=== PATIENT | female | born 1960 | race African-American/Black ===

== ENCOUNTER 2018-08-12 15:02 | Inpatient (IN) | payer MEDICAID ==
[~2018-08-12] VITALS: Ht 167.6 cm; Wt 89.4 kg
[~2018-08-12 15:02] MED LIST: AMLO5TAB88 PO; ARIP15TA2 PO; CARB200T PO; CARB200T6 PO; CLOP75TA16 PO; HYDR-3927 PO; HYDR25TA PO; KEPP500 PO; LEVO500T2 PO; LEVVL SQ; LISI10TA5 PO; METF-416 PO; MIRT30TA PO; OMEP20CA4 PO; PANT40TA4 PO; PRAV40TA PO; SIME80TA15 PO; SIMV10TA2 PO; SIMV10TA6 PO; SITA100T11 PO; [UNRECOGNIZED DRUG - CODE] PO
[2018-08-12] MEDS ORDERED: HYDRALAZINE 20MG/ML VIAL IV ONE (15:15)
[2018-08-12 16:39] LABS: CLARITY URINE CLEAR (CLEAR); COLOR URINE YELLOW (YELLOW); KETONES URINE NEGATIVE (NEGATIVE); LEUKOCYTE ESTERASE URINE TRACE (NEGATIVE); NITRITE URINE NEGATIVE (NEGATIVE); OCCULT BLOOD URINE NEGATIVE (NEGATIVE); PH URINE 6.5 (4.5-8.0); PROTEIN URINE 1+ (NEGATIVE); SPECIFIC GRAVITY URINE 1.016 (1.005-1.030); UROBILINOGEN URINE 0.2 E.U./dL (0.2-1.0)
[2018-08-12 16:39] LABS: EOSINOPHILS % 0.5 % (0.0-5.0); HEMATOCRIT. 31.6 % (36.0-48.0); HEMOGLOBIN. 9.8 g/dL (12.0-16.0); LYMPHOCYTES % 25.6 % (20.0-50.0); MEAN CORPUSCULAR HEMOGLOBIN 25.6 pg (28.0-32.0); MEAN CORPUSCULAR VOLUME 82.5 fL (81.0-99.0); MEAN PLATELET VOLUME 8.6 fl (7.4-10.4); MONOCYTES % 7.8 % (2.0-8.0); NEUTROPHILS % 65.1 % (40.0-76.0); PLATELET 261 x1000/uL (130-400); RED BLOOD CELL COUNT 3.83 mill/uL (4.2-5.4); RED CELL DISTRIBUTION WIDTH 16.3 % (11.6-14.6)
[2018-08-12 16:46] LABS: CHLORIDE 101 mEq/L (98-107)
[2018-08-12 16:47] LABS: INR 1.1; PROTHROMBIN TIME 10.7 sec (9.1-11.1)
[2018-08-12 16:52] LABS: ETHANOL BLOOD < 10 mg/dL
[2018-08-12 16:54] LABS: LDL CHOLESTEROL 134 mg/dL (5-100)
[2018-08-12 16:56] LABS: *BARBITURATES SCREEN URINE NEGATIVE (NEGATIVE); *BENZODIAZEPINES SCREEN URINE NEGATIVE (NEGATIVE); *COCAINE SCREEN URINE NEGATIVE (NEGATIVE); METHADONE URINE SCREEN NEGATIVE (NEGATIVE); OPIATES URINE SCREEN NEGATIVE (NEGATIVE)
[2018-08-12 16:57] LABS: *AMPHETAMINES SCREEN URINE NEGATIVE (NEGATIVE); CANNABINOID URINE SCREEN PRESUMTIVE POSITIVE (NEGATIVE); PHENCYCLIDINE URINE SCREEN NEGATIVE (NEGATIVE)
[2018-08-12] MEDS ORDERED: SODIUM CHLORIDE 0.9% 500 ML IV NR (18:00)
[2018-08-12] MEDS ORDERED: INSULIN LISPRO 100 UNITS/ML SUBCUT NR (18:00)
[2018-08-12] MEDS ORDERED: ONDANSETRON HCL 4MG/2ML INJ IV PRN (19:00)
[2018-08-12] MEDS ORDERED: ACETAMINOPHEN 650MG SUPP PR PRN (19:00)
[2018-08-12] MEDS ORDERED: IPRATROPIUM/ALBUTEROL 0.5-3(2.5)MG/3ML NEB INH PRN (19:00)
[2018-08-12 19:54] LABS: PHOSPHORUS 4.2 mg/dL (2.5-4.9)
[2018-08-12 23:25] LABS: CREATINE KINASE 93 IU/L (26-192)
[2018-08-12] MEDS ORDERED: ASPIRIN 81MG TABLET PO NR (23:30)
[2018-08-13] VITALS (13 sets, daily range): BP systolic 123–157; BP diastolic 56–93
[2018-08-13] MEDS ORDERED: DEXTROSE 50% WATER 50ML SYRINGE IV PRN (00:15)
[2018-08-13 06:49] LABS: CHLORIDE 106 mEq/L (98-107)
[2018-08-13] MEDS: HYDRALAZINE 20MG/ML VIAL IV PRN ×2 (06:56→15:01)
[2018-08-13 07:11] LABS: LDL CHOLESTEROL 130 mg/dL (5-100)
[2018-08-13 07:12] LABS: CREATINE KINASE 81 IU/L (26-192); HDL CHOLESTEROL 98 mg/dL (40-59)
[2018-08-13 07:25] LABS: BASOPHILS % 1.3 % (0.0-2.0); EOSINOPHILS % 0.6 % (0.0-5.0); HEMOGLOBIN. 9.8 g/dL (12.0-16.0); LYMPHOCYTES % 26.5 % (20.0-50.0); MEAN CORPUSCULAR HEMOGLOBIN 25.6 pg (28.0-32.0); MEAN CORPUSCULAR VOLUME 81.1 fL (81.0-99.0); MEAN PLATELET VOLUME 8.7 fl (7.4-10.4); MONOCYTES % 8.4 % (2.0-8.0); NEUTROPHILS % 63.2 % (40.0-76.0); PLATELET 310 x1000/uL (130-400); RED BLOOD CELL COUNT 3.81 mill/uL (4.2-5.4); RED CELL DISTRIBUTION WIDTH 16.8 % (11.6-14.6)
[2018-08-13] MEDS: INSULIN LISPRO 100 UNITS/ML SUBCUT SCH ×4 (08:00→21:19)
[2018-08-13] MEDS: BLOOD SUGAR DIAGNOSTIC STRIP TEST SCH ×4 (08:02→21:00)
[2018-08-13 13:28] LABS: T4 FREE 0.86 ng/dL (0.76-1.46)
[2018-08-13] MEDS: SODIUM CHLORIDE 0.9% 1,000 ML IV SCH (13:34)
[2018-08-13] MEDS: AMLODIPINE 5MG TABLET PO SCH (13:38)
[2018-08-13] MEDS: CLOPIDOGREL 75MG TABLET PO SCH (13:38)
[2018-08-13] MEDS: LEVETIRACETAM 500MG TABLET PO SCH ×2 (13:38→21:00)
[2018-08-13 13:51] LABS: FOLIC ACID (FOLATE) SERUM >20 ng/mL ng/mL (>5.38)
[2018-08-13 14:12] LABS: VITAMIN B12 SERUM 725 pg/mL (211-911)
[2018-08-13] MEDS: MIRTAZAPINE 15MG TABLET PO SCH (21:00)
[2018-08-14] VITALS (13 sets, daily range): BP systolic 118–169; BP diastolic 63–85
[2018-08-14] MEDS: SODIUM CHLORIDE 0.9% 1,000 ML IV SCH ×2 (01:05→13:38)
[2018-08-14] MEDS: BLOOD SUGAR DIAGNOSTIC STRIP TEST SCH ×4 (07:36→20:42)
[2018-08-14] MEDS: LEVETIRACETAM 500MG TABLET PO SCH ×2 (08:16→20:42)
[2018-08-14] MEDS: AMLODIPINE 5MG TABLET PO SCH (08:16)
[2018-08-14] MEDS: CLOPIDOGREL 75MG TABLET PO SCH (08:16)
[2018-08-14] MEDS: INSULIN LISPRO 100 UNITS/ML SUBCUT SCH ×4 (08:39→20:52)
[2018-08-14] MEDS ORDERED: HYDR50SY PO (15:26)
[2018-08-14] MEDS ORDERED: OMEP20TA2 PO (15:26)
[2018-08-14] MEDS ORDERED: LURA60TA MT (15:26)
[2018-08-14] MEDS ORDERED: LORA10TA64 PO (15:26)
[2018-08-14] MEDS ORDERED: GEMF600T4 PO (15:26)
[2018-08-14] MEDS ORDERED: GABA-529 MT (15:26)
[2018-08-14] MEDS ORDERED: CLON0.3T PO (15:26)
[2018-08-14] MEDS: HYDRALAZINE 20MG/ML VIAL IV PRN (17:28)
[2018-08-14] MEDS: ATORVASTATIN CALCIUM 20MG TABLET PO SCH (20:42)
[2018-08-14] MEDS: MIRTAZAPINE 15MG TABLET PO SCH (20:42)
[2018-08-14] MEDS: INSULIN GLARGINE UD 100 UNITS/ML SYR SUBCUT SCH (21:01)
[2018-08-15] VITALS (13 sets, daily range): BP systolic 127–187; BP diastolic 70–104
[2018-08-15 06:48] LABS: BASOPHILS % 0.9 % (0.0-2.0); EOSINOPHILS % 0.9 % (0.0-5.0); HEMATOCRIT. 36.3 % (36.0-48.0); HEMOGLOBIN. 11.1 g/dL (12.0-16.0); LYMPHOCYTES % 38.4 % (20.0-50.0); MEAN CORPUSCULAR HEMOGLOBIN 25.1 pg (28.0-32.0); MEAN PLATELET VOLUME 8.6 fl (7.4-10.4); MONOCYTES % 6.9 % (2.0-8.0); NEUTROPHILS % 52.9 % (40.0-76.0); PLATELET 310 x1000/uL (130-400); RED BLOOD CELL COUNT 4.43 mill/uL (4.2-5.4); RED CELL DISTRIBUTION WIDTH 16.7 % (11.6-14.6)
[2018-08-15 06:49] LABS: CHLORIDE 108 mEq/L (98-107)
[2018-08-15] MEDS: BLOOD SUGAR DIAGNOSTIC STRIP TEST SCH ×4 (07:30→21:00)
[2018-08-15] MEDS: CLOPIDOGREL 75MG TABLET PO SCH (08:44)
[2018-08-15] MEDS: LEVETIRACETAM 500MG TABLET PO SCH ×2 (08:44→21:56)
[2018-08-15] MEDS: AMLODIPINE 5MG TABLET PO SCH (08:46)
[2018-08-15] MEDS: INSULIN LISPRO 100 UNITS/ML SUBCUT SCH ×4 (08:49→21:00)
[2018-08-15] MEDS: INSULIN GLARGINE UD 100 UNITS/ML SYR SUBCUT SCH ×2 (11:00→22:06)
[2018-08-15] MEDS: CLONIDINE 0.1MG TABLET PO PRN ×2 (11:56→18:14)
[2018-08-15] MEDS: ATORVASTATIN CALCIUM 20MG TABLET PO SCH (21:56)
[2018-08-15] MEDS: MIRTAZAPINE 15MG TABLET PO SCH (21:56)
[2018-08-15] MEDS ORDERED: INSULIN GLARGINE UD 100 UNITS/ML SYR SUBCUT SCH (22:00)
[2018-08-16] VITALS (9 sets, daily range): BP systolic 106–149; BP diastolic 60–78
[2018-08-16] MEDS: BLOOD SUGAR DIAGNOSTIC STRIP TEST SCH ×4 (07:30→21:59)
[2018-08-16] MEDS: LEVETIRACETAM 500MG TABLET PO SCH ×2 (08:17→21:58)
[2018-08-16] MEDS: AMLODIPINE 5MG TABLET PO SCH ×2 (08:17→21:58)
[2018-08-16] MEDS: CLOPIDOGREL 75MG TABLET PO SCH (08:17)
[2018-08-16] MEDS: INSULIN LISPRO 100 UNITS/ML SUBCUT SCH ×4 (08:18→21:59)
[2018-08-16] MEDS: INSULIN GLARGINE UD 100 UNITS/ML SYR SUBCUT SCH ×2 (10:05→22:00)
[2018-08-16 10:28] LABS: EOSINOPHILS % 1.1 % (0.0-5.0); HEMATOCRIT. 32.6 % (36.0-48.0); LYMPHOCYTES % 25.8 % (20.0-50.0); MEAN CORPUSCULAR VOLUME 81.9 fL (81.0-99.0); MEAN PLATELET VOLUME 8.6 fl (7.4-10.4); MONOCYTES % 6.4 % (2.0-8.0); NEUTROPHILS % 65.7 % (40.0-76.0); PLATELET 292 x1000/uL (130-400); RED BLOOD CELL COUNT 3.98 mill/uL (4.2-5.4); RED CELL DISTRIBUTION WIDTH 16.4 % (11.6-14.6)
[2018-08-16 10:36] LABS: CHLORIDE 106 mEq/L (98-107)
[2018-08-16 10:57] LABS: TOTAL IRON BINDING CAPACITY 342 ug/dL (250-450)
[2018-08-16] MEDS: SODIUM CHLORIDE 0.9% 1,000 ML IV SCH ×2 (13:12→16:15)
[2018-08-16] MEDS: LORATADINE 10MG TABLET PO SCH (14:02)
[2018-08-16] MEDS: HYDROCODONE/ACETAMINOPHEN 5/325MG TABLET PO PRN (14:03)
[2018-08-16] MEDS: DOCUSATE SODIUM 100MG CAPSULE PO SCH (19:53)
[2018-08-16] MEDS: POLYETHYLENE GLYCOL 3350 (17GM) 1 DOSE PACK PO SCH (19:53)
[2018-08-16] MEDS: ATORVASTATIN CALCIUM 20MG TABLET PO SCH (21:58)
[2018-08-16] MEDS: MIRTAZAPINE 15MG TABLET PO SCH (21:58)
[2018-08-17] VITALS: BP 140/83
[2018-08-17 04:00] VITALS: BP 155/69
[2018-08-17] MEDS: SODIUM CHLORIDE 0.9% 1,000 ML IV SCH ×2 (04:57→17:15)
[2018-08-17 06:15] LABS: BASOPHILS % 1.1 % (0.0-2.0); EOSINOPHILS % 1.4 % (0.0-5.0); HEMATOCRIT. 30.7 % (36.0-48.0); HEMOGLOBIN. 9.6 g/dL (12.0-16.0); LYMPHOCYTES % 38.8 % (20.0-50.0); MEAN CORPUSCULAR HEMOGLOBIN 25.5 pg (28.0-32.0); MEAN CORPUSCULAR VOLUME 81.9 fL (81.0-99.0); MEAN PLATELET VOLUME 8.7 fl (7.4-10.4); NEUTROPHILS % 49.7 % (40.0-76.0); PLATELET 271 x1000/uL (130-400); RED BLOOD CELL COUNT 3.75 mill/uL (4.2-5.4); RED CELL DISTRIBUTION WIDTH 16.2 % (11.6-14.6)
[2018-08-17 06:43] LABS: CHLORIDE 106 mEq/L (98-107)
[2018-08-17 08:00] VITALS: BP 170/76
[2018-08-17] MEDS: BLOOD SUGAR DIAGNOSTIC STRIP TEST SCH ×4 (08:01→21:10)
[2018-08-17] MEDS: CLOPIDOGREL 75MG TABLET PO SCH (08:11)
[2018-08-17] MEDS: DOCUSATE SODIUM 100MG CAPSULE PO SCH (08:11)
[2018-08-17] MEDS: FERROUS SULFATE 325MG TABLET PO SCH ×3 (08:11→18:28)
[2018-08-17] MEDS: LEVETIRACETAM 500MG TABLET PO SCH ×2 (08:11→21:05)
[2018-08-17] MEDS: POLYETHYLENE GLYCOL 3350 (17GM) 1 DOSE PACK PO SCH ×2 (08:14→21:16)
[2018-08-17] MEDS: INSULIN LISPRO 100 UNITS/ML SUBCUT SCH ×4 (08:15→21:18)
[2018-08-17] MEDS: LORATADINE 10MG TABLET PO SCH (08:16)
[2018-08-17] MEDS: AMLODIPINE 5MG TABLET PO SCH ×2 (09:17→21:06)
[2018-08-17] MEDS: INSULIN GLARGINE UD 100 UNITS/ML SYR SUBCUT SCH ×2 (10:00→21:19)
[2018-08-17 12:00] VITALS: BP 141/73
[2018-08-17 16:00] VITALS: BP 130/69
[2018-08-17] MEDS: HYDROCODONE/ACETAMINOPHEN 5/325MG TABLET PO PRN (16:47)
[2018-08-17 20:00] VITALS: BP 160/80
[2018-08-17] MEDS: LACTULOSE 20G/30ML UDC PO SCH (21:05)
[2018-08-17] MEDS: MIRTAZAPINE 15MG TABLET PO SCH (21:05)
[2018-08-17] MEDS: ATORVASTATIN CALCIUM 20MG TABLET PO SCH (21:05)
[2018-08-18] VITALS (7 sets, daily range): BP systolic 125–163; BP diastolic 59–88
[2018-08-18] MEDS: LACTULOSE 20G/30ML UDC PO SCH ×2 (00:31→05:00)
[2018-08-18] MEDS: SODIUM CHLORIDE 0.9% 1,000 ML IV SCH (05:45)
[2018-08-18] MEDS: BLOOD SUGAR DIAGNOSTIC STRIP TEST SCH ×4 (06:14→21:07)
[2018-08-18] MEDS: INSULIN LISPRO 100 UNITS/ML SUBCUT SCH ×4 (06:18→21:27)
[2018-08-18] MEDS: DOCUSATE SODIUM 100MG CAPSULE PO SCH ×3 (09:00→17:21)
[2018-08-18] MEDS: POLYETHYLENE GLYCOL 3350 (17GM) 1 DOSE PACK PO SCH ×2 (09:00→20:59)
[2018-08-18] MEDS: FERROUS SULFATE 325MG TABLET PO SCH ×3 (09:01→17:21)
[2018-08-18] MEDS: CLOPIDOGREL 75MG TABLET PO SCH (09:01)
[2018-08-18] MEDS: AMLODIPINE 5MG TABLET PO SCH ×2 (09:01→21:00)
[2018-08-18] MEDS: LEVETIRACETAM 500MG TABLET PO SCH ×2 (09:01→21:00)
[2018-08-18] MEDS: LORATADINE 10MG TABLET PO SCH (09:01)
[2018-08-18 10:06] LABS: BASOPHILS % 1.2 % (0.0-2.0); HEMATOCRIT. 33.8 % (36.0-48.0); HEMOGLOBIN. 10.5 g/dL (12.0-16.0); MEAN CORPUSCULAR HEMOGLOBIN 25.5 pg (28.0-32.0); MEAN CORPUSCULAR VOLUME 81.8 fL (81.0-99.0); MEAN PLATELET VOLUME 8.8 fl (7.4-10.4); MONOCYTES % 7.5 % (2.0-8.0); NEUTROPHILS % 58.3 % (40.0-76.0); PLATELET 336 x1000/uL (130-400); RED BLOOD CELL COUNT 4.13 mill/uL (4.2-5.4); RED CELL DISTRIBUTION WIDTH 16.4 % (11.6-14.6)
[2018-08-18 10:23] LABS: CHLORIDE 106 mEq/L (98-107)
[2018-08-18] MEDS: INSULIN GLARGINE UD 100 UNITS/ML SYR SUBCUT SCH ×2 (10:25→21:27)
[2018-08-18] MEDS: HYDROCODONE/ACETAMINOPHEN 5/325MG TABLET PO PRN (12:08)
[2018-08-18] MEDS: MIRTAZAPINE 15MG TABLET PO SCH (21:00)
[2018-08-18] MEDS: ATORVASTATIN CALCIUM 20MG TABLET PO SCH (21:00)
[2018-08-19] VITALS: BP 110/52
[2018-08-19] MEDS: BLOOD SUGAR DIAGNOSTIC STRIP TEST SCH ×4 (05:57→21:00)
[2018-08-19 06:00] VITALS: BP 126/59
[2018-08-19 07:12] LABS: EOSINOPHILS % 1.4 % (0.0-5.0); HEMATOCRIT. 33.2 % (36.0-48.0); HEMOGLOBIN. 10.2 g/dL (12.0-16.0); LYMPHOCYTES % 30.5 % (20.0-50.0); MEAN CORPUSCULAR HEMOGLOBIN 25.2 pg (28.0-32.0); MEAN CORPUSCULAR VOLUME 82.3 fL (81.0-99.0); MEAN PLATELET VOLUME 8.8 fl (7.4-10.4); MONOCYTES % 7.3 % (2.0-8.0); NEUTROPHILS % 59.8 % (40.0-76.0); PLATELET 320 x1000/uL (130-400); RED BLOOD CELL COUNT 4.04 mill/uL (4.2-5.4); RED CELL DISTRIBUTION WIDTH 16.2 % (11.6-14.6)
[2018-08-19 07:19] LABS: CHLORIDE 103 mEq/L (98-107)
[2018-08-19 08:00] VITALS: BP 148/84
[2018-08-19] MEDS: LORATADINE 10MG TABLET PO SCH (08:34)
[2018-08-19] MEDS: LEVETIRACETAM 500MG TABLET PO SCH ×2 (08:34→22:26)
[2018-08-19] MEDS: DOCUSATE SODIUM 100MG CAPSULE PO SCH ×2 (08:34→18:38)
[2018-08-19] MEDS: AMLODIPINE 5MG TABLET PO SCH ×2 (08:34→22:28)
[2018-08-19] MEDS: CLOPIDOGREL 75MG TABLET PO SCH (08:34)
[2018-08-19] MEDS: INSULIN LISPRO 100 UNITS/ML SUBCUT SCH ×4 (08:35→22:47)
[2018-08-19] MEDS: FERROUS SULFATE 325MG TABLET PO SCH ×3 (09:10→18:41)
[2018-08-19] MEDS: INSULIN GLARGINE UD 100 UNITS/ML SYR SUBCUT SCH ×2 (09:11→22:00)
[2018-08-19 12:00] VITALS: BP 128/79
[2018-08-19] MEDS: HYDROCODONE/ACETAMINOPHEN 5/325MG TABLET PO PRN (13:42)
[2018-08-19 16:00] VITALS: BP 159/84
[2018-08-19] MEDS: LIDOCAINE 5% PATCH TOP SCH (18:39)
[2018-08-19 20:00] VITALS: BP 114/82
[2018-08-19] MEDS: ATORVASTATIN CALCIUM 20MG TABLET PO SCH (22:26)
[2018-08-19] MEDS: POLYETHYLENE GLYCOL 3350 (17GM) 1 DOSE PACK PO SCH (22:27)
[2018-08-19] MEDS: MIRTAZAPINE 15MG TABLET PO SCH (22:28)
[2018-08-20] VITALS: BP 147/68
[2018-08-20 04:00] VITALS: BP 134/59
[2018-08-20 06:17] LABS: EOSINOPHILS % 1.4 % (0.0-5.0); HEMATOCRIT. 31.9 % (36.0-48.0); HEMOGLOBIN. 9.9 g/dL (12.0-16.0); LYMPHOCYTES % 33.7 % (20.0-50.0); MEAN CORPUSCULAR HEMOGLOBIN 25.8 pg (28.0-32.0); MEAN CORPUSCULAR VOLUME 82.8 fL (81.0-99.0); MEAN PLATELET VOLUME 8.8 fl (7.4-10.4); MONOCYTES % 9.7 % (2.0-8.0); NEUTROPHILS % 54.2 % (40.0-76.0); PLATELET 282 x1000/uL (130-400); RED BLOOD CELL COUNT 3.85 mill/uL (4.2-5.4); RED CELL DISTRIBUTION WIDTH 16.4 % (11.6-14.6)
[2018-08-20 06:19] LABS: CHLORIDE 107 mEq/L (98-107)
[2018-08-20] MEDS: BLOOD SUGAR DIAGNOSTIC STRIP TEST SCH ×4 (07:26→21:00)
[2018-08-20 08:00] VITALS: BP 143/73
[2018-08-20] MEDS: LIDOCAINE 5% PATCH TOP SCH (09:00)
[2018-08-20] MEDS: CLOPIDOGREL 75MG TABLET PO SCH (09:02)
[2018-08-20] MEDS: LORATADINE 10MG TABLET PO SCH (09:02)
[2018-08-20] MEDS: FERROUS SULFATE 325MG TABLET PO SCH ×3 (09:02→18:50)
[2018-08-20] MEDS: DOCUSATE SODIUM 100MG CAPSULE PO SCH ×2 (09:02→17:00)
[2018-08-20] MEDS: LEVETIRACETAM 500MG TABLET PO SCH ×2 (09:02→23:05)
[2018-08-20] MEDS: AMLODIPINE 5MG TABLET PO SCH ×2 (09:02→23:04)
[2018-08-20] MEDS: INSULIN GLARGINE UD 100 UNITS/ML SYR SUBCUT SCH ×2 (09:05→23:19)
[2018-08-20] MEDS: INSULIN LISPRO 100 UNITS/ML SUBCUT SCH ×4 (09:05→21:00)
[2018-08-20] MEDS: HYDROCODONE/ACETAMINOPHEN 5/325MG TABLET PO PRN ×2 (09:09→23:05)
[2018-08-20 12:00] VITALS: BP 142/69
[2018-08-20 16:00] VITALS: BP 134/82
[2018-08-20] MEDS: POLYETHYLENE GLYCOL 3350 (17GM) 1 DOSE PACK PO SCH (18:53)
[2018-08-20 20:00] VITALS: BP 113/48
[2018-08-20] MEDS: MIRTAZAPINE 15MG TABLET PO SCH (23:04)
[2018-08-20] MEDS: ATORVASTATIN CALCIUM 20MG TABLET PO SCH (23:05)
[2018-08-21] MEDS: BLOOD SUGAR DIAGNOSTIC STRIP TEST SCH ×4 (06:23→19:58)
[2018-08-21 08:00] VITALS: BP 141/75
[2018-08-21] MEDS: LIDOCAINE 5% PATCH TOP SCH (08:13)
[2018-08-21] MEDS: LEVETIRACETAM 500MG TABLET PO SCH ×2 (08:45→19:58)
[2018-08-21] MEDS: DOCUSATE SODIUM 100MG CAPSULE PO SCH ×2 (08:45→18:21)
[2018-08-21] MEDS: LORATADINE 10MG TABLET PO SCH (08:45)
[2018-08-21] MEDS: CLOPIDOGREL 75MG TABLET PO SCH (08:46)
[2018-08-21] MEDS: HYDROCODONE/ACETAMINOPHEN 5/325MG TABLET PO PRN (08:46)
[2018-08-21] MEDS: FERROUS SULFATE 325MG TABLET PO SCH ×3 (08:46→18:21)
[2018-08-21] MEDS: INSULIN LISPRO 100 UNITS/ML SUBCUT SCH ×4 (08:47→20:18)
[2018-08-21] MEDS: AMLODIPINE 5MG TABLET PO SCH ×2 (08:52→19:58)
[2018-08-21] MEDS: INSULIN GLARGINE UD 100 UNITS/ML SYR SUBCUT SCH ×2 (10:50→22:48)
[2018-08-21 12:00] VITALS: BP 131/64
[2018-08-21 16:00] VITALS: BP 128/65
[2018-08-21] MEDS: MIRTAZAPINE 15MG TABLET PO SCH (19:57)
[2018-08-21] MEDS: ATORVASTATIN CALCIUM 20MG TABLET PO SCH (19:58)
[2018-08-21] MEDS: POLYETHYLENE GLYCOL 3350 (17GM) 1 DOSE PACK PO SCH (19:58)
[2018-08-21 20:00] VITALS: BP 129/50
[2018-08-22] VITALS: BP 125/62
[2018-08-22 04:00] VITALS: BP 150/62
[2018-08-22] MEDS: BLOOD SUGAR DIAGNOSTIC STRIP TEST SCH ×4 (06:14→21:14)
[2018-08-22 06:46] LABS: BASOPHILS % 0.9 % (0.0-2.0); EOSINOPHILS % 1.7 % (0.0-5.0); HEMATOCRIT. 31.3 % (36.0-48.0); HEMOGLOBIN. 9.7 g/dL (12.0-16.0); LYMPHOCYTES % 36.7 % (20.0-50.0); MEAN CORPUSCULAR VOLUME 83.6 fL (81.0-99.0); NEUTROPHILS % 51.7 % (40.0-76.0); PLATELET 289 x1000/uL (130-400); RED BLOOD CELL COUNT 3.75 mill/uL (4.2-5.4)
[2018-08-22 07:19] LABS: CHLORIDE 107 mEq/L (98-107)
[2018-08-22 08:00] VITALS: BP 186/84
[2018-08-22] MEDS: FERROUS SULFATE 325MG TABLET PO SCH ×3 (09:07→18:39)
[2018-08-22] MEDS: LORATADINE 10MG TABLET PO SCH (09:07)
[2018-08-22] MEDS: AMLODIPINE 5MG TABLET PO SCH ×2 (09:07→21:37)
[2018-08-22] MEDS: LEVETIRACETAM 500MG TABLET PO SCH ×2 (09:07→21:37)
[2018-08-22] MEDS: DOCUSATE SODIUM 100MG CAPSULE PO SCH ×2 (09:07→18:39)
[2018-08-22] MEDS: CLOPIDOGREL 75MG TABLET PO SCH (09:07)
[2018-08-22] MEDS: HYDROCODONE/ACETAMINOPHEN 5/325MG TABLET PO PRN ×2 (09:09→18:39)
[2018-08-22] MEDS: INSULIN GLARGINE UD 100 UNITS/ML SYR SUBCUT SCH ×2 (09:11→21:36)
[2018-08-22] MEDS: LIDOCAINE 5% PATCH TOP SCH (09:11)
[2018-08-22] MEDS: INSULIN LISPRO 100 UNITS/ML SUBCUT SCH ×4 (09:12→21:36)
[2018-08-22 12:00] VITALS: BP 165/75
[2018-08-22 16:00] VITALS: BP 178/87
[2018-08-22] MEDS: ATORVASTATIN CALCIUM 20MG TABLET PO SCH (21:36)
[2018-08-22] MEDS: POLYETHYLENE GLYCOL 3350 (17GM) 1 DOSE PACK PO SCH (21:37)
[2018-08-22] MEDS: MIRTAZAPINE 15MG TABLET PO SCH (21:37)
[2018-08-23] VITALS: BP 125/49
[2018-08-23 04:00] VITALS: BP 114/63
[2018-08-23] MEDS: BLOOD SUGAR DIAGNOSTIC STRIP TEST SCH ×4 (06:38→21:54)
[2018-08-23 06:48] LABS: BASOPHILS % 0.7 % (0.0-2.0); EOSINOPHILS % 1.8 % (0.0-5.0); HEMATOCRIT. 32.5 % (36.0-48.0); HEMOGLOBIN. 10.3 g/dL (12.0-16.0); LYMPHOCYTES % 36.3 % (20.0-50.0); MEAN CORPUSCULAR HEMOGLOBIN 26.6 pg (28.0-32.0); MEAN CORPUSCULAR VOLUME 84.3 fL (81.0-99.0); MEAN PLATELET VOLUME 8.6 fl (7.4-10.4); MONOCYTES % 8.6 % (2.0-8.0); NEUTROPHILS % 52.6 % (40.0-76.0); PLATELET 309 x1000/uL (130-400); RED BLOOD CELL COUNT 3.85 mill/uL (4.2-5.4); RED CELL DISTRIBUTION WIDTH 17.2 % (11.6-14.6)
[2018-08-23 06:58] LABS: CHLORIDE 109 mEq/L (98-107)
[2018-08-23 08:00] VITALS: BP 184/88
[2018-08-23] MEDS: CLOPIDOGREL 75MG TABLET PO SCH (09:12)
[2018-08-23] MEDS: LIDOCAINE 5% PATCH TOP SCH (09:12)
[2018-08-23] MEDS: LEVETIRACETAM 500MG TABLET PO SCH ×2 (09:13→21:51)
[2018-08-23] MEDS: LORATADINE 10MG TABLET PO SCH (09:13)
[2018-08-23] MEDS: FERROUS SULFATE 325MG TABLET PO SCH ×3 (09:13→18:00)
[2018-08-23] MEDS: AMLODIPINE 5MG TABLET PO SCH ×2 (09:14→21:51)
[2018-08-23] MEDS: INSULIN LISPRO 100 UNITS/ML SUBCUT SCH ×4 (09:16→21:53)
[2018-08-23] MEDS: DOCUSATE SODIUM 100MG CAPSULE PO SCH ×2 (10:05→18:00)
[2018-08-23] MEDS: INSULIN GLARGINE UD 100 UNITS/ML SYR SUBCUT SCH ×2 (10:07→21:54)
[2018-08-23] MEDS: HYDROCODONE/ACETAMINOPHEN 5/325MG TABLET PO PRN ×2 (10:07→16:00)
[2018-08-23 12:00] VITALS: BP 169/84
[2018-08-23 16:00] VITALS: BP 164/81
[2018-08-23] MEDS: LISINOPRIL 10MG TABLET PO SCH (18:00)
[2018-08-23] MEDS: HYDROCHLOROTHIAZIDE 25MG TABLET PO SCH (18:29)
[2018-08-23 20:00] VITALS: BP 160/84
[2018-08-23] MEDS: ATORVASTATIN CALCIUM 20MG TABLET PO SCH (21:50)
[2018-08-23] MEDS: MIRTAZAPINE 15MG TABLET PO SCH (21:51)
[2018-08-23] MEDS: CLONIDINE 0.1MG TABLET PO SCH (21:51)
[2018-08-23] MEDS: POLYETHYLENE GLYCOL 3350 (17GM) 1 DOSE PACK PO SCH (21:54)
[2018-08-24] VITALS: BP 147/53
[2018-08-24 04:00] VITALS: BP 142/54
[2018-08-24] MEDS: CLONIDINE 0.1MG TABLET PO SCH ×3 (05:55→21:11)
[2018-08-24] MEDS: HYDROCODONE/ACETAMINOPHEN 5/325MG TABLET PO PRN ×3 (06:00→18:19)
[2018-08-24] MEDS: BLOOD SUGAR DIAGNOSTIC STRIP TEST SCH ×4 (06:46→20:56)
[2018-08-24 06:53] LABS: EOSINOPHILS % 1.8 % (0.0-5.0); HEMATOCRIT. 32.5 % (36.0-48.0); HEMOGLOBIN. 10.1 g/dL (12.0-16.0); MEAN CORPUSCULAR HEMOGLOBIN 26.4 pg (28.0-32.0); MEAN CORPUSCULAR VOLUME 85.2 fL (81.0-99.0); MEAN PLATELET VOLUME 9.2 fl (7.4-10.4); MONOCYTES % 8.9 % (2.0-8.0); NEUTROPHILS % 50.3 % (40.0-76.0); PLATELET 286 x1000/uL (130-400); RED BLOOD CELL COUNT 3.82 mill/uL (4.2-5.4); RED CELL DISTRIBUTION WIDTH 17.5 % (11.6-14.6)
[2018-08-24 07:00] LABS: CHLORIDE 108 mEq/L (98-107)
[2018-08-24 08:00] VITALS: BP 107/59
[2018-08-24] MEDS: DOCUSATE SODIUM 100MG CAPSULE PO SCH ×2 (08:54→18:14)
[2018-08-24] MEDS: HYDROCHLOROTHIAZIDE 25MG TABLET PO SCH (08:54)
[2018-08-24] MEDS: LORATADINE 10MG TABLET PO SCH (08:54)
[2018-08-24] MEDS: CLOPIDOGREL 75MG TABLET PO SCH (08:55)
[2018-08-24] MEDS: FERROUS SULFATE 325MG TABLET PO SCH ×3 (08:55→18:14)
[2018-08-24] MEDS: LEVETIRACETAM 500MG TABLET PO SCH ×2 (08:55→21:03)
[2018-08-24] MEDS: INSULIN LISPRO 100 UNITS/ML SUBCUT SCH ×4 (08:57→20:55)
[2018-08-24] MEDS: LIDOCAINE 5% PATCH TOP SCH (08:59)
[2018-08-24] MEDS: LISINOPRIL 10MG TABLET PO SCH (09:00)
[2018-08-24] MEDS: AMLODIPINE 5MG TABLET PO SCH ×2 (09:00→21:03)
[2018-08-24] MEDS: INSULIN GLARGINE UD 100 UNITS/ML SYR SUBCUT SCH ×2 (10:46→21:02)
[2018-08-24 12:00] VITALS: BP 125/76
[2018-08-24 16:00] VITALS: BP 130/63
[2018-08-24] MEDS ORDERED: ACETAMINOPHEN 500MG TABLET PO PRN (16:00)
[2018-08-24] MEDS: ATORVASTATIN CALCIUM 20MG TABLET PO SCH (21:03)
[2018-08-24] MEDS: POLYETHYLENE GLYCOL 3350 (17GM) 1 DOSE PACK PO SCH (21:03)
[2018-08-24] MEDS: MIRTAZAPINE 15MG TABLET PO SCH (21:03)
== END 2018-08-24 22:55 | DRG 53 ==
LOC: ER 15:02 → 5EST 17:50 → EDBEDREQ 17:57 → ENRESERV 22:27 → 7WST 08-16 10:15
PROVIDERS: ADMIT Internal Medicine; ATTEND Internal Medicine
DX: G40.909 Epilepsy, unspecified, not intractable, without status epilepticus (principal); E11.65 Type 2 diabetes mellitus with hyperglycemia; I69.351 Hemiplegia and hemiparesis following cerebral infarction affecting right dominant side; I16.1 Hypertensive emergency; I10 Essential (primary) hypertension; D64.9 Anemia, unspecified; J44.9 Chronic obstructive pulmonary disease, unspecified; Z79.4 Long term (current) use of insulin; D50.9 Iron deficiency anemia, unspecified; E78.00 Pure hypercholesterolemia, unspecified; E78.5 Hyperlipidemia, unspecified; R47.01 Aphasia; R13.10 Dysphagia, unspecified; W18.39XA Other fall on same level, initial encounter; T42.1X5A Adverse effect of iminostilbenes, initial encounter; K59.00 Constipation, unspecified; M17.12 Unilateral primary osteoarthritis, left knee; R32 Unspecified urinary incontinence; Z87.820 Personal history of traumatic brain injury; Z88.8 Allergy status to other drugs, medicaments and biological substances; Y93.89 Activity, other specified; Y92.89 Other specified places as the place of occurrence of the external cause; Y99.8 Other external cause status; I69.322 Dysarthria following cerebral infarction
CPT/HCPCS: 36415; 70551; 71045; 73560; 80048; 80061; 80156; 80305; 82140; 82550; 82607; 82728; 82746; 82962; 83036; 83540; 83550; 83721; 83735; 84100; 84439; 84443; 84481; 84484; 85379; 92523; 92610; 93005; 93306; 93880; 93970; 96372; 96374; 97110; 97116; 97162; 97166; 97530; 97535; 99291; A6261; C1893; J0360; J1815; J2405; J7030

== ENCOUNTER 2018-12-01 03:24 | Emergency (ER) | payer MEDICAID ==
[~2018-12-01] VITALS: Ht 167.6 cm; Wt 82.0 kg
[~2018-12-01 03:24] MED LIST changes: +CLON0.3T PO; -CLOP75TA16 PO; +CLOP75TA4 PO; +GABA-529 MT; +GEMF600T5 PO; +HYDR50SY PO; +LORA10TA64 PO; +LURA60TA MT; +OMEP20TA2 PO
[2018-12-01 05:23] LABS: BASOPHILS % 0.5 % (0.0-2.0); EOSINOPHILS % 1.8 % (0.0-5.0); HEMATOCRIT. 39.5 % (36.0-48.0); HEMOGLOBIN. 12.7 g/dL (12.0-16.0); LYMPHOCYTES % 25.4 % (20.0-50.0); MEAN CORPUSCULAR HEMOGLOBIN 29.1 pg (28.0-32.0); MEAN CORPUSCULAR VOLUME 90.6 fL (81.0-99.0); MEAN PLATELET VOLUME 8.8 fl (7.4-10.4); MONOCYTES % 8.2 % (2.0-8.0); NEUTROPHILS % 64.1 % (40.0-76.0); PLATELET 240 x1000/uL (130-400); RED BLOOD CELL COUNT 4.36 mill/uL (4.2-5.4); RED CELL DISTRIBUTION WIDTH 14.7 % (11.6-14.6)
[2018-12-01 05:28] LABS: CHLORIDE 106 mEq/L (98-107)
[2018-12-01 05:29] LABS: CLARITY URINE CLEAR (CLEAR); COLOR URINE YELLOW (YELLOW); KETONES URINE 1+ (NEGATIVE); LEUKOCYTE ESTERASE URINE NEGATIVE (NEGATIVE); NITRITE URINE NEGATIVE (NEGATIVE); OCCULT BLOOD URINE TRACE (NEGATIVE); PH URINE 6.5 (4.5-8.0); PROTEIN URINE TRACE (NEGATIVE); SPECIFIC GRAVITY URINE 1.021 (1.005-1.030); UROBILINOGEN URINE 0.2 E.U./dL (0.2-1.0)
[2018-12-01 05:34] LABS: ETHANOL BLOOD < 10 mg/dL
[2018-12-01 05:39] LABS: BETA HYDROXYBUTYRATE 1.1 mMol/L (0.0-0.3)
[2018-12-01 06:06] LABS: *AMPHETAMINES SCREEN URINE NEGATIVE (NEGATIVE); *BARBITURATES SCREEN URINE NEGATIVE (NEGATIVE); *BENZODIAZEPINES SCREEN URINE NEGATIVE (NEGATIVE); *COCAINE SCREEN URINE PRESUMTIVE POSITIVE (NEGATIVE); METHADONE URINE SCREEN NEGATIVE (NEGATIVE); OPIATES URINE SCREEN PRESUMTIVE POSITIVE (NEGATIVE)
[2018-12-01 06:07] LABS: CANNABINOID URINE SCREEN NEGATIVE (NEGATIVE); PHENCYCLIDINE URINE SCREEN NEGATIVE (NEGATIVE)
[2018-12-01] MEDS ORDERED: INSULIN LISPRO 100 UNITS/ML SUBCUT ONE (06:15)
[2018-12-01] MEDS ORDERED: SODIUM CHLORIDE 0.9% 1,000 ML IV ONE ×2 (10:29→18:18)
[2018-12-01] MEDS ORDERED: INSULIN REGULAR (HUMULIN R) 300UNITS/3ML SUBCUT ONE ×3 (16:00→18:30)
[2018-12-01 22:46] VITALS: BP 156/71
== END 2018-12-01 23:16 ==
LOC: ER 03:24
DX: R45.851 Suicidal ideations (principal); E11.65 Type 2 diabetes mellitus with hyperglycemia; Z79.4 Long term (current) use of insulin; Z86.73 Personal history of transient ischemic attack (TIA), and cerebral infarction without residual deficits; Z98.890 Other specified postprocedural states; Z79.899 Other long term (current) drug therapy; Z88.8 Allergy status to other drugs, medicaments and biological substances
CPT/HCPCS: 36415; 70450; 80053; 80305; 80307; 80320; 80329; 81003; 82010; 82962; 83690; 85025; 96360; 96361; 96372; 99285; J1815; J7030; Z7610; G0480